=== PATIENT | female | born 1990 | race Caucasian/White ===

== ENCOUNTER 2019-04-02 23:46 | Emergency (ER) | payer BC ==
[~2019-04-02] VITALS: Ht 162.6 cm; Wt 88.5 kg
[2019-04-03 00:35] VITALS: Ht 162.6 cm; Wt 88.5 kg
[2019-04-03 03:19] VITALS: BP 114/64
== END 2019-04-03 03:19 | disposition home or self-care (01) ==
LOC: ED 23:46
DX: L03.113 Cellulitis of right upper limb (principal)
CPT/HCPCS: 87804

== ENCOUNTER 2019-04-03 12:43 | Emergency (ER) | payer BC ==
[~2019-04-03] VITALS: Ht 162.6 cm; Wt 87.5 kg
[2019-04-03 12:55] VITALS: Ht 162.6 cm; Wt 87.5 kg
[2019-04-03 14:56] VITALS: BP 114/56
== END 2019-04-03 14:56 | disposition home or self-care (01) ==
LOC: ED 12:43
DX: B34.9 Viral infection, unspecified (principal); T63.441A Toxic effect of venom of bees, accidental (unintentional), initial encounter; F17.210 Nicotine dependence, cigarettes, uncomplicated; Z98.890 Other specified postprocedural states; Y92.89 Other specified places as the place of occurrence of the external cause
CPT/HCPCS: 87804; J1885

== ENCOUNTER 2019-07-09 12:40 | Emergency (ER) | payer BC ==
[~2019-07-09] VITALS: Ht 167.6 cm; Wt 77.1 kg
[2019-07-09 12:41] VITALS: Ht 167.6 cm; Wt 77.1 kg
[2019-07-09 14:46] VITALS: BP 99/53
== END 2019-07-09 14:46 | disposition home or self-care (01) ==
LOC: ED 12:40
DX: J11.1 Influenza due to unidentified influenza virus with other respiratory manifestations (principal); Z98.890 Other specified postprocedural states
CPT/HCPCS: 87804; J1885

== ENCOUNTER 2020-04-23 08:06 | Emergency (ER) | payer OTHER ==
[~2020-04-23] VITALS: Ht 160 cm; Wt 72.6 kg
[2020-04-23 08:12] VITALS: BP 130/80
== END 2020-04-23 08:25 | disposition home or self-care (01) ==
LOC: ED 08:06
DX: K04.01 Reversible pulpitis (principal)